=== PATIENT | female | born 2000 | race Caucasian/White ===

== ENCOUNTER 2021-11-13 16:15 | Emergency (ER) | payer OTHER ==
[2021-11-13 17:58] LABS: HEMOGLOBIN 11.6 gm/dl (12.3-15.3); RED BLOOD COUNT 3.57 M/UL (4.00-5.10); WHITE BLOOD COUNT 7.9 K/UL (4.5-11.0)
[2021-11-13 18:16] LABS: BUN/CREATININE RATIO 15 (0-10)
== END 2021-11-13 21:32 | disposition home or self-care (01) ==
LOC: ER1 16:15
PROVIDERS: Physician Assistant
DX: O20.9 Hemorrhage in early pregnancy, unspecified (principal); Z3A.01 Less than 8 weeks gestation of pregnancy
CPT/HCPCS: 80048; 81001; 84702; 85025; 86900; 86901; 99284